=== PATIENT | female | born 1950 | race Caucasian/White ===

== ENCOUNTER 2019-04-09 12:41 | Emergency (ER) | payer MEDICARE, BC ==
--- OUTSIDE RECORDS SUMMARY | 2019-04-09 13:00 | XMS REPORT | Continuity of Care Document ---
:1950 External Reference #:[id number] Author Name Vira Nunez Care Team Providers Name Role Phone Ale Miranda MD Primary Care Physician Unavailable Payers Date Identification Numbers Payment Provider Subscriber Policy Number: [id number] Medicare Yessica Laura PayID: [id number] [address] [place] [address] Effective: 2007 Policy Number: [id number] [facility] Yessica Jj PayID: [id number] [address] [place] [address] Problems Active Problems Provider Date Malignant neoplasm of female breast Ale Miranda M.D. Onset: 08/01/2010 Asthma without status asthmaticus Ale Miranda M.D. Onset: 08/01/2010 Benign essential hypertension Ale Miranda M.D. Onset: 10/12/2012 Impaired fasting glycaemia Ale Miranda M.D. Onset: 10/12/2012 Glaucoma Ale Miranda M.D. 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3 Ale s/p right Jordan Miranda 5 mastectomy Asmanex Twisthaler 60 2 inhalation 6units J20.9 Ale Metered Doses twice daily Jordan Miranda 5 220mcg/Inh Aerosol Potassium Chloride ER 3 po qd 270tabs Ale 10Meq Jordan Miranda 4 Tablets ER Losartan Potassium take 1 tablet by 90tabs Ale 25mg Tablets mouth once daily Jordan Miranda 4 Ventolin HFA 1 to 2 1inhaler J20.9 [facility] 108(90Base) inhalations Jordan Miranda 4 mcg/Act Aerosol every 4 hours as needed Fluticasone Propionate instill 2 sprays 48units Ale into each Jordan Miranda 4 50mcg/Act Suspension nostril once daily Hydrochlorothiazide 1/2 by mouth 45tabs Ale 25mg every day Jordan Miranda 3 Tablets Levothyroxine Sodium 1 by mouth once 90tabs Ale 75mcg daily Tomasz MirandaDRicardo 0 Tablets Lumigan one drop both Unknown 0.01% Solution eyes qhs 0 Betoptic-S 1 drop in left Unknown 0.25% Suspension eye bid 0 Multi Complete daily Unknown Capsules 0 Vit D3 daily Unknown 2000Iu 0 History Medications Azithromycin 2 tabs by mouth 6tabs J45.909 Ale 09/07/2018 - 250mg Tablets on day 1; 1 tab Jordan Miranda 10/27/2018 by mouth every day on days 2-5 Augmentin 1 tablet by 20tabs J01.90 Jama Spring NP 12/10/2017 - 875-125mg Tablets mouth q12 hours 12/20/2017 for 10 days Cheratussin ac take 5-10 118ml R05 Jama Spring NP 12/10/2017 - 100-10mg/5ML milliliters 12/17/2017 Syrup every 4-6 hours as needed for cough. Benzonatate one by mouth 30caps R05 Jama Spring NP 12/10/2017 - 200mg Capsules three times 12/24/2017 daily as needed for cough Azithromycin 2 tabs by mouth 6tabs I10 Ale 08/28/2017 - 250mg Tablets on day 1; 1 tab Jordan Miranda 09/04/2017 by mouth every day on days 2-5 Azithromycin two tabs day 6tabs J20.9 Kaylah Mcfarlane, 10/30/2016 - 250mg Tablets one, one daily N.P. 11/09/2016 till gone Prednisone 4 tablets by 40tabs J20.9 Kaylah Mcfarlane, 10/30/2016 - 10mg Tablets mouth for 4 days N.P. 11/09/2016 3 tablets by mouth for 4 days 2 tablets by mouth for 4 days 1 tablet by mouth for 4 days Benzonatate one by mouth 30caps J20.9 Kaylah Mcfarlane, 10/30/2016 - 200mg Capsules three times N.P. 11/13/2016 daily as needed for cough Asmanex 60 Metered Doses 2 inhalation 360units 466.0 Ale 10/14/2014 - twice daily Ruben M.DRicardo 11/21/2014 220mcg/Inh Aerosol Azithromycin 2 tabs by mouth 6tabs 466.0 Ale 10/14/2014 - 250mg Tablets on day 1; 1 tab Jordan Miranda 03/27/2015 by mouth every day on days 2-5 Nystatin 4 milliliters 473ml 112.0 Kaylah Mcfarlane, 08/30/2014 - 159415Pcit/ML four times a N.P. 09/13/2014 Suspension day, swish and swallow for 14 days Azithromycin two tabs day 6tabs 466.0 Kaylah Sarahfreida, 08/30/2014 - 250mg Tablets one, one daily N.P. 09/09/2014 till gone Robitussin ac 1 - 2 tsp every 120cc 466.0 Kaylah Denys, 08/30/2014 - Solution 4 hours as N.P. 09/13/2014 needed for cough Potassium Chloride CR 3 po qd 270tabs Ale 04/12/2013 - 10Meq Jordan Miranda 07/05/2014 Tablets ER Robitussin ac 1 - 2 tsp very 4 240cc 466.0 Kaylah Denys, 11/23/2012 - hours as needed N.P. 04/12/2013 for cough Prednisone as directed 40tabs 466.0 Kaylah Denys, 11/23/2012 - 5mg Tablets N.P. 12/09/2012 Azithromycin two tabs day 6tabs 466.0 Vamsi Garcia 11/23/2012 - 250mg Tablets one, one daily Jordan James 04/14/2014 till gone Ventolin HFA 1 to 2 1inhaler 466.0 Kaylah Denys, 11/23/2012 - 108(90Base) inhalations N.P. 04/14/2014 mcg/ac Aerosol every 4 hours as needed Zofran 1 tab po q6h prn 20tabs Van Cruz, 03/16/2012 - 4mg Tablets nausea M.D. 10/12/2012 Ray 1-2 tabs po q4-6 60tabs k Anthony, 03/16/2012 - 5-325mg Tablets h prn pain M.D. 10/12/2012 Wheelchair, Folding for use for 1units Ale 03/15/2012 - Misc ankle fracture Jordan Miranda 10/12/2012 Robitussin ac 1 - 2 tsp q 4 120cc 466.0 Ale 02/03/2012 - hours, prn cough Jordan Miranda 03/15/2012 Azithromycin two tabs day 6tabs 466.0 Ale 02/03/2012 - 250mg Tablets one, one daily Jordan Miranda 02/13/2012 till gone Azithromycin two tabs day 6tabs 466.0 Lea Sands 12/03/2011 - 250mg Tablets one, one daily M.DRicardo, [facility] 12/13/2011 till gone Robitussin ac 1 - 2 tsp q 4 120cc 466.0 [facility] 12/03/2011 - Solution hrs prn cough Jordan Miranda 02/03/2012 Asmanex 60 Metered Doses 2 inhalation 360units [facility] 10/10/2011 - twice daily Jordan Miranda 10/14/2014 220mcg/Inh Aerosol Potassium Chloride CR 1 by mouth twice 90tabs [facility] 09/11/2011 - 10Meq daily Jordan Miranda 04/12/2013 Tablets ER Robitussin ac 1 - 2 tsp every 120cc 461.9 [facility] 07/31/2011 - 4 hours as Jordan Miranda 09/11/2011 needed for cough Amoxicillin/Potassium 1 po bid for 10 20tabs 461.9 [facility] 07/31/2011 - Clavulanate days Jordan Miranda 08/10/2011 875-125mg Tablets Zithromax Z-Frandy two po initially 1Pack 461.9 [facility] 06/25/2011 - 250mg Tablets then one po Jordan Miranda 09/11/2011 daily Robitussin ac 1 - 2 tsp every 120cc 461.9 [facility] 06/25/2011 - 4 hours prn Jordan Miranda 09/11/2011 cough Medrol Dosepak as directed 1pak 461.9 Lea Sands, 05/07/2011 - 4mg Tablets M.DRicardo, [facility] 05/13/2011 Azithromycin two tabs day 6tabs 461.9 Lea Sands, 05/07/2011 - 250mg Tablets one, one daily M.DRicardo, [facility] 05/17/2011 till gone Robitussin ac 1 to 2 tsp every 120cc 461.9 Lea Sands, 05/07/2011 - Solution 4 hours as Jordan, [facility] 05/21/2011 needed for cough Zithromax Z-Frandy two po initially 1Pack 461.9 [facility] 03/08/2011 - 250mg Tablets then one po Jordan Miranda 03/18/2011 daily Robitussin ac 1 to 2 tsp every 120cc 461.9 [facility] 03/08/2011 - Solution 4 hours as Jordan Miranda 07/31/2011 needed for cough Mastectomy Bra 2units 272.4 [facility] 02/05/2011 - Jordan Miranda 02/05/2011 Breast Prosthesis 1units 272.4 [facility] 02/05/2011 - Jordan Miranda 02/05/2011 Hydrochlorothiazide Take One-Half 45tabs Lea Sands, 01/02/2011 - 25mg Tablet By Mouth Jordan, FAC 02/05/2011 Tablets A Day Zofran 1 tablet three 30tabs [facility] 08/02/2010 - 8mg Tablets times daily MD Huseyin 02/05/2011 Erythromycin Apply to 373.00 [facility] 08/02/2010 - Ophthalmologic Ointment affected eye qhs Jordan Miranda 02/05/2011 HCTZ 1/2 tablet by 45units [facility] 06/18/2010 - 25mg. mouth once daily Jordan Miranda 04/12/2013 Flovent HFA Inhale 2 Puffs 3units [facility] 06/18/2010 - 220mcg/Act Two Times A Day Jordan Miranda 10/10/2011 Aerosol Nasonex Instill 2 Sprays 3units 401.1 [facility] 06/18/2010 - 50mcg/Act Suspension Into Each Jordan Miranda 04/14/2014 Nostril Once Daily Hydrochlorothiazide 1/2 tablet once 15tabs [facility] 06/01/2010 - 25mg daily Jordan Miranda 08/02/2010 Tablets Lisinopril 1 by mouth once 90tabs [facility] 05/18/2010 - 2.5mg Tablets daily Jordan Miranda 05/09/2014 Anastrozole 1 tablet by Justice, - 1mg Tablets mouth daily MD Huseyin 06/05/2016 Immunizations CPT Code Status Date Vaccine Lot # [id number] Given 03/06/2018 Pneumococcal Conjugate Vaccine 13 Valent For [id number] Intramuscular Use [id number] Given 06/05/2016 Tetanus And Diptheria (Td) For Adult Use [id number] Preservative Free Vital Signs Date Vital Result Comment 03/12/2019 1:29pm Height 63.75 inches 5'3.75" Weight 172.00 lb Heart Rate 84 /min BP Systolic Sitting 137 mmHg BP Diastolic Sitting 83 mmHg O2 % BldC Oximetry 97 % BMI (Body Mass Index) 29.8 kg/m2 09/07/2018 2:35pm Height 63.75 inches 5'3.75" Weight 171.00 lb Heart Rate 81 /min BP Systolic 132 mmHg BP Diastolic 82 mmHg BP Systolic Sitting 145 mmHg BP Diastolic Sitting 87 mmHg O2 % BldC Oximetry 98 % BMI (Body Mass Index) 29.6 kg/m2 03/06/2018 1:15pm Height 63.75 inches 5'3.75" Weight 170.00 lb Heart Rate 73 /min BP Systolic Sitting 156 mmHg BP Diastolic Sitting 78 mmHg O2 % BldC Oximetry 100 % BMI (Body Mass Index) 29.4 kg/m2 12/10/2017 9:14am Weight 169.25 lb Heart Rate 72 /min BP Systolic 126 mmHg BP Diastolic 82 mmHg Body Temperature 97.0 F O2 % BldC Oximetry 96 % 08/28/2017 2:25pm Weight 167.50 lb Heart Rate 94 /min BP Systolic 122 mmHg BP Diastolic 80 mmHg Body Temperature 99.6 F O2 % BldC Oximetry 94 % 06/13/2017 3:58pm Weight 165.50 lb Heart Rate 83 /min BP Systolic 140 mmHg BP Diastolic 64 mmHg Body Temperature 98.1 F O2 % BldC Oximetry 99 % 12/19/2016 8:37am Weight 162.50 lb Heart Rate 75 /min BP Systolic 138 mmHg BP Diastolic 80 mmHg O2 % BldC Oximetry 98 % 10/30/2016 9:06am Height 64 inches 5'4" Weight 164.00 lb Heart Rate 82 /min BP Systolic 122 mmHg BP Diastolic 78 mmHg Body Temperature 99.0 F O2 % BldC Oximetry 97 % BMI (Body Mass Index) 28.1 kg/m2 06/05/2016 11:13am Height 64 inches 5'4" Weight 174.00 lb Heart Rate 70 /min BP Systolic Sitting 126 mmHg BP Diastolic Sitting 82 mmHg Respiratory Rate 15 /min Body Temperature 98.5 F O2 % BldC Oximetry 98 % BMI (Body Mass Index) 29.9 kg/m2 04/18/2015 4:01pm Height 64 inches 5'4" Weight 177.25 lb Heart Rate 75 /min BP Systolic Sitting 141 mmHg BP Diastolic Sitting 78 mmHg BMI (Body Mass Index) 30.4 kg/m2 10/14/2014 1:40pm Height 64 inches 5'4" Weight 171.00 lb Heart Rate 80 /min BP Systolic Sitting 122 mmHg BP Diastolic Sitting 70 mmHg Body Temperature 99.1 F O2 % BldC Oximetry 99 % BMI (Body Mass Index) 29.3 kg/m2 08/30/2014 9:20am Height 64 inches 5'4" Weight 171.25 lb Heart Rate 99 /min BP Systolic Sitting 148 mmHg BP Diastolic Sitting 70 mmHg Body Temperature 98.1 F O2 % BldC Oximetry 96 % BMI (Body Mass Index) 29.4 kg/m2 04/14/2014 1:28pm Height 64 inches 5'4" Weight 172.00 lb Heart Rate 72 /min BP Systolic Sitting 124 mmHg BP Diastolic Sitting 68 mmHg Body Temperature 98.6 F BMI (Body Mass Index) 29.5 kg/m2 02/17/2014 10:54am Height 64 inches 5'4" Heart Rate 71 /min BP Systolic 156 mmHg BP Diastolic 86 mmHg 01/26/2014 9:35am Weight 168.00 lb Heart Rate 80 /min BP Systolic Sitting 130 mmHg BP Diastolic Sitting 82 mmHg 10/14/2013 1:44pm Weight 169.00 lb Heart Rate 78 /min BP Systolic Sitting 128 mmHg BP Diastolic Sitting 84 mmHg 05/24/2013 10:31am Height 64.5 inches 5'4.50" Weight 173.50 lb Heart Rate 72 /min BP Systolic Sitting 130 mmHg BP Diastolic Sitting 80 mmHg BMI (Body Mass Index) 29.3 kg/m2 04/12/2013 3:22pm Weight 175.00 lb Heart Rate 76 /min BP Systolic Sitting 136 mmHg BP Diastolic Sitting 82 mmHg 11/23/2012 10:37am Height 64 inches 5'4" Weight 171.00 lb Heart Rate 106 /min BP Systolic Sitting 128 mmHg BP Diastolic Sitting 82 mmHg Body Temperature 100.0 F BMI (Body Mass Index) 29.3 kg/m2 10/12/2012 3:27pm Height 64 inches 5'4" Weight 168.00 lb Heart Rate 86 /min BP Systolic Sitting 132 mmHg BP Diastolic Sitting 80 mmHg BMI (Body Mass Index) 28.8 kg/m2 04/07/2012 4:04pm Height 64 inches 5'4" Heart Rate 84 /min BP Systolic Sitting 128 mmHg BP Diastolic Sitting 72 mmHg 03/16/2012 2:37pm Height 64 inches 5'4" Weight 169.00 lb Heart Rate 93 /min BP Systolic 145 mmHg BP Diastolic 84 mmHg BMI (Body Mass Index) 29.0 kg/m2 02/03/2012 10:25am Height 63.5 inches 5'3.50" Weight 174.00 lb Heart Rate 84 /min BP Systolic Sitting 142 mmHg BP Diastolic Sitting 76 mmHg Body Temperature 98.9 F BMI (Body Mass Index) 30.3 kg/m2 12/03/2011 3:18pm Height 63.5 inches 5'3.50" Weight 176.00 lb BP Systolic Sitting 134 mmHg l BP Diastolic Sitting 82 mmHg l Body Temperature 98.8 F BMI (Body Mass Index) 30.7 kg/m2 10/10/2011 2:01pm Height 63.5 inches 5'3.50" Weight 169.00 lb Heart Rate 68 /min BP Systolic Sitting 142 mmHg BP Diastolic Sitting 74 mmHg BMI (Body Mass Index) 29.5 kg/m2 07/31/2011 3:55pm Height 63.5 inches 5'3.50" Weight 174.00 lb Heart Rate 84 /min BP Systolic Sitting 132 mmHg BP Diastolic Sitting 64 mmHg Body Temperature 98.9 F BMI (Body Mass Index) 30.3 kg/m2 06/25/2011 2:08pm Height 63.5 inches 5'3.50" Weight 175.00 lb Heart Rate 74 /min BP Systolic Sitting 130 mmHg BP Diastolic Sitting 82 mmHg Body Temperature 99.2 F BMI (Body Mass Index) 30.5 kg/m2 05/07/2011 11:03am Height 63.5 inches 5'3.50" Weight 176.00 lb Heart Rate 66 /min BP Systolic Sitting 132 mmHg BP Diastolic Sitting 84 mmHg Body Temperature 98.9 F BMI (Body Mass Index) 30.7 kg/m2 03/08/2011 3:46pm Height 63.5 inches 5'3.50" Weight 178.00 lb Heart Rate 76 /min BP Systolic Sitting 124 mmHg BP Diastolic Sitting 70 mmHg Body Temperature 98.4 F BMI (Body Mass Index) 31.0 kg/m2 02/05/2011 11:12am Weight 173.00 lb Heart Rate 78 /min BP Systolic 140 mmHg BP Diastolic 80 mmHg 08/02/2010 2:54pm Height 64.5 inches 5'4.50" Weight 166.25 lb Heart Rate 76 /min BP Systolic 122 mmHg BP Diastolic 74 mmHg Body Temperature 98.5 F BMI (Body Mass Index) 28.1 kg/m2 Results Test Date Facility Test Result H/L Range Note Lipid Profile 02/19/2019 [facility] Triglycerides 161 mg/dL 1 (Trig/Chol/HDL) DRIVE [place], [place] [id number] [phone] Cholesterol 187 mg/dL 2 HDL Cholesterol 40.6 mg/dL 3 LDL Cholesterol 114 mg/dL 4 Laboratory test 02/19/2019 [facility] TSH (Thyroid 1.77 mcIU/mL N 0.34-5.[address] Stim Horm) [place] [address] [phone] Hemoglobin A1c (Glyco HGB) 6.0 % High 4.0-5.6 5 Laboratory test 09/14/2018 [facility] Surgical SEE RESULT [address] [place] [address] [phone] CBC Auto Diff 06/26/2018 [facility] White Blood 8.4 10^3/uL N 3.5-10 DRIVE Count .8 [place], [place] [id number] [phone] Red Blood Count 4.41 10^6/uL N 4.00-5.40 Hemoglobin 13.1 g/dL N 12.0-16.0 Hematocrit 39 % N 35-47 Mean Corpuscular Volume 89 fL N 80-97 Mean Corpuscular Hemoglobin 30 pg N 27-31 Mean Corpuscular HGB Conc 33 g/dL N 31-36 Red Cell Distribution Width 13 % N 10.5-15 Platelet Count 262 10^3/uL N 150-450 Mean Platelet Volume 8.7 um3 N 7.4-10.4 Abs Neutrophils 5.5 10^3/uL N 1.5-7.7 Abs Lymphocytes 2.1 10^3/uL N 1.0-4.8 Abs Monocytes 0.5 10^3/uL N 0-0.8 Abs Eosinophils 0.3 10^3/uL N 0-0.6 Abs Basophils 0.1 10^3/uL N 0-0.2 Abs Nucleated RBC 0 10^3/uL Granulocyte % 65.0 % N 38-83 Lymphocyte % 24.4 % Low 25-47 Monocyte % 6.3 % N 0-7 Eosinophil % 3.6 % N 0-6 Basophil % 0.7 % N 0-2 Nucleated Red Blood Cells % 0 Comp Metabolic Panel 06/26/2018 [facility] Sodium 141 mmol/L N 135-[address] [place] [address] [phone] Potassium 3.5 mmol/L N 3.5-5.0 Chloride 105 mmol/L N 101-111 Co2 Carbon Dioxide 29 mmol/L N 22-32 Anion Gap 7 mmol/L N 2-11 Calcium 9.0 mg/dL N 8.6-10.3 Albumin 4.1 g/dL N 3.2-5.2 Total Bilirubin 0.60 mg/dL N 0.2-1.0 Glucose 110 mg/dL High 70-100 Blood Urea Nitrogen 18 mg/dL N 6-24 Creatinine 0.58 mg/dL N 0.51-0.95 BUN/Creatinine Ratio 31.0 High 8-20 Total Protein 6.5 g/dL N 6.4-8.9 Globulin 2.4 g/dL N 2-4 Albumin/Globulin Ratio 1.7 N 1-3 Alkaline Phosphatase 84 U/L N 34-104 Alt 17 U/L N 7-52 Ast 16 U/L N 13-39 Egfr Non- 104.0 >60 Egfr 125.9 >60 7 Laboratory test 06/26/2018 [facility] Breast Carcinoma 22.7 U/ mL <=38.0 8 finding 101 Ag(Ca27.29) [place] [address] [phone] Lipid Profile 03/31/2018 [facility] Triglycerides 158 mg/dL 9 (Trig/Chol/HDL) [address] [place] [address] [phone] Cholesterol 194 mg/dL 10 HDL Cholesterol 37.3 mg/dL 11 LDL Cholesterol 125 mg/dL 12 CBC No Diff 02/17/2018 [facility] White Blood 7.4 10^3/uL N 3.5-10.[address] [place] [address] [phone] Red Blood Count 4.38 10^6/uL N 4.0-5.4 Hemoglobin 13.0 g/dL N 12.0-16.0 Hematocrit 39 % N 35-47 Mean Corpuscular Volume 89 fL N 80-97 Mean Corpuscular Hemoglobin 30 pg N 27-31 Mean Corpuscular HGB Conc 34 g/dL N 31-36 Red Cell Distribution Width 13 % N 10.5-15 Platelet Count 249 10^3/uL N 150-450 Mean Platelet Volume 8.8 um3 N 7.4-10.4 Laboratory test 02/17/2018 [facility] Hemoglobin A1c 5.7 % High 4.0-5.6 13 finding (Glyco HGB) [place] [address] [phone] Basic Metabolic 02/17/2018 [facility] Sodium 141 N 139-145 Panel mmol/[place] [address] [phone] Potassium 3.6 mmol/L N 3.5-5.0 Chloride 103 mmol/L N 101-111 Co2 Carbon Dioxide 30 mmol/L N 22-32 Anion Gap 8 mmol/L N 2-11 Glucose 108 mg/dL High 70-100 Blood Urea Nitrogen 16 mg/dL N 6-24 Creatinine 0.64 mg/dL N 0.51-0.95 BUN/Creatinine Ratio 25.0 High 8-20 Calcium 8.9 mg/dL N 8.6-10.3 Egfr Non- 92.8 >60 Egfr 119.4 >60 14 Laboratory 02/17/2018 [facility] TSH (Thyroid 2.05 N 0.34- 5.60 test finding Stim Horm) mcIU/[place] [address] [phone] Laboratory 11/19/2016 [facility] Hemoglobin A1c 5.6 % N Less than 15 test finding (Glyco HGB) 6.0 [place] [address] [phone] Lipid Profile 11/19/2016 [facility] Triglycerides 161 mg/dL N 16 (Trig/Chol/HDL ) [place] [address] [phone] Cholesterol 171 mg/dL N 17 HDL Cholesterol 35.8 mg/dL N 18 LDL Cholesterol 103 mg/dL N 19 Laboratory 11/19/2016 [facility] TSH (Thyroid 1.44 N 0.34- 5.[address] Stim Horm) mcIU/[place] [address] [phone] Laboratory 06/06/2016 [facility] Hemoglobin A1c 5.9 % N Less than 20 test finding [address] (Glyco HGB) 6.[address] [place] [address] [phone] Lipid Profile 11/06/2015 [facility] Triglycerides 162 mg/dL N 21 (Trig/Chol/HDL [address] ) [place] [address] [phone] Cholesterol 185 mg/dL N 22 HDL Cholesterol 37.7 mg/dL N 23 LDL Cholesterol 115 mg/dL N 24 Laboratory test 11/06/2015 [facility] Hemoglobin A1c 5.6 % N Less than [address] (Glyco HGB) 6.[address] [place] [address] [phone] TSH (Thyroid Stim Horm) 2.21 ?IU/mL N 0.34-5.60 CBC Auto Diff 05/19/2015 [facility] White Blood 8.0 10^3/uL N 4.8-10.[address] [place] [address] [phone] Red Blood Count 4.64 10^6/uL N 4.0-5.4 Hemoglobin 13.7 g/dL N 12.0-16.0 Hematocrit 42 % N 35-47 Mean Corpuscular Volume 90 fL N 80-97 Mean Corpuscular Hemoglobin 29 pg N 27-31 Mean Corpuscular HGB Conc 33 g/dL N 31-36 Red Cell Distribution Width 14 % N 10.5-15 Platelet Count 272 10^3/uL N 150-450 Mean Platelet Volume 8 um3 N 7.4-10.4 Abs Neutrophils 5.0 10^3/uL N 1.5-7.7 Abs Lymphocytes 2.1 10^3/uL N 1.0-4.8 Abs Monocytes 0.5 10^3/uL N 0-0.8 Abs Eosinophils 0.3 10^3/uL N 0-0.6 Abs Basophils 0.1 10^3/uL N 0-0.2 Abs Nucleated RBC 0.01 10^3/uL N Granulocyte % 62.7 % N 38-83 Lymphocyte % 26.2 % N 25-47 Monocyte % 5.7 % N 1-9 Eosinophil % 4.2 % N 0-6 Basophil % 1.2 % N 0-2 Nucleated Red Blood Cells % 0.1 N Comp Metabolic Panel 05/19/2015 [facility] Sodium 140 mmol/L N 133-[address] [place] [address] [phone] Potassium 3.8 mmol/L N 3.5-5.0 Chloride 104 mmol/L N 101-111 Co2 Carbon Dioxide 28 mmol/L N 22-32 Anion Gap 8 mmol/L N 2-11 Glucose 109 mg/dL High 70-100 Blood Urea Nitrogen 15 mg/dL N 6-24 Creatinine 0.57 mg/dL N 0.51-0.95 BUN/Creatinine Ratio 26.3 High 8-20 Calcium 9.2 mg/dL N 8.6-10.3 Total Protein 6.9 g/dL N 6.4-8.9 Albumin 4.4 g/dL N 3.2-5.2 Globulin 2.5 g/dL N 2-4 Albumin/Globulin Ratio 1.8 N 1-3 Total Bilirubin 0.60 mg/dL N 0.2-1.0 Alkaline Phosphatase 87 U/L N 34-104 Alt 33 U/L N 7-52 Ast 25 U/L N 13-39 Egfr Non- 107.1 N >60 Egfr 137.8 N >60 26 Laboratory 05/19/2015 [facility] CA 27-29 19.50 N 3.5-38.6 27 test finding [address] U/[place] [address] [phone] Laboratory 03/02/2015 [facility] Hemoglobin A1c 6.1 % High Less than 28 test finding [address] 6[address] [place] [address] [phone] CBC Auto Diff 12/13/2014 [facility] White Blood 8.7 N 4.8- 10.[address] Count 10^3/[place] [address] [phone] Red Blood Count 4.57 10^6/uL N 4.0-5.4 Hemoglobin 13.7 g/dL N 12.0-16.0 Hematocrit 41 % N 35-47 Mean Corpuscular Volume 89 fL N 80-97 Mean Corpuscular Hemoglobin 30 pg N 27-31 Mean Corpuscular HGB Conc 34 g/dL N 31-36 Red Cell Distribution Width 13 % N 10.5-15 Platelet Count 267 10^3/uL N 150-450 Mean Platelet Volume 8 um3 N 7.4-10.4 Abs Neutrophils 5.6 10^3/uL N 1.5-7.7 Abs Lymphocytes 2.2 10^3/uL N 1.0-4.8 Abs Monocytes 0.5 10^3/uL N 0-0.8 Abs Eosinophils 0.3 10^3/uL N 0-0.6 Abs Basophils 0.1 10^3/uL N 0-0.2 Abs Nucleated RBC 0 10^3/uL N Granulocyte % 64.0 % N 38-83 Lymphocyte % 25.2 % N 25-47 Monocyte % 5.8 % N 1-9 Eosinophil % 3.8 % N 0-6 Basophil % 1.2 % N 0-2 Nucleated Red Blood Cells % 0 N Comp Metabolic Panel 12/13/2014 [facility] Sodium 139 mmol/L N 133-[address] [place] [address] [phone] Potassium 4.1 mmol/L N 3.5-5.0 Chloride 103 mmol/L N 101-111 Co2 Carbon Dioxide 29 mmol/L N 22-32 Anion Gap 7 mmol/L N 2-11 Glucose 101 mg/dL High 70-100 Blood Urea Nitrogen 18 mg/dL N 6-24 Creatinine 0.63 mg/dL N 0.51-0.95 BUN/Creatinine Ratio 28.6 High 8-20 Calcium 9.5 mg/dL N 8.6-10.3 Total Protein 7.1 g/dL N 6.4-8.9 Albumin 4.5 g/dL N 3.2-5.2 Globulin 2.6 g/dL N 2-4 Albumin/Globulin Ratio 1.7 N 1-3 Total Bilirubin 0.60 mg/dL N 0.2-1.0 Alkaline Phosphatase 80 U/L N 34-104 Alt 25 U/L N 7-52 Ast 23 U/L N 13-39 Egfr Non- 95.8 N >60 Egfr 123.1 N >60 29 Laboratory test 12/13/2014 [facility] CA 27-29 20.69 U/mL N 3.5-38.6 [address] [place] [address] [phone] Lipid Profile 09/19/2014 [facility] Triglycerides 197 mg/dL N 31 (Trig/Chol/HDL) [address] [place] [address] [phone] Cholesterol 179 mg/dL N 32 HDL Cholesterol 35.4 mg/dL N 33 LDL Cholesterol 104 mg/dL N 34 Laboratory test 09/19/2014 [facility] Hemoglobin A1c 6.0 % N Less than [address] [place] [address] [phone] TSH (Thyroid Stimulating Horm) 2.34 IU/mL N 0.34-5.60 Laboratory test 03/03/2014 [facility] Hemoglobin A1c 5.9 % N Less than [address] [place] [address] [phone] Hepatitis C Antibody Nonreactive N Nonreactive Vitamin D, 25 08/06/2013 [facility] 25-Hydroxy Vitamin <4.0 ng/ mL Hydroxy [address] [place] [address] [phone] 25-Hydroxy Vitamin D3 44 ng/mL 25-Hydroxy Vitamin D Total 44 ng/mL 37 Laboratory test 08/06/2013 [facility] TSH (Thyroid 1.34 0.34- 5.60 finding Stimulating miu/[place] [address] Horm) [phone] Hemoglobin A1c 6.0 % Less than 6.0 38 Lipid Profile 08/06/2013 [facility] Triglycerides 182 mg/dL 40-200 (Trig/Chol/HDL) [address] [place] [address] [phone] Cholesterol 195 mg/dL Less than 200 HDL Cholesterol 35 mg/dL Low 40-60 39 Cholesterol/HDL Ratio 5.6 Average High 1-4.44 LDL Cholesterol 123.6 High Less Than 100 40 Comp Metabolic Panel 08/06/2013 [facility] Sodium 140 mmol/L 133-145 [address] [place] [address] [phone] Potassium 3.9 mmol/L 3.5-5.0 Chloride 105 mmol/L 101-111 Co2 Carbon Dioxide 29.0 mmol/L 22-32 Anion Gap 6.0 mmol/L 2-11 Glucose 106 mg/dL High 70-100 Blood Urea Nitrogen 13 mg/dL 6-24 Creatinine 0.60 mg/dL 0.50-1.40 BUN/Creatinine Ratio 21.7 High 8-20 Calcium 9.4 mg/dL 8.1-9.9 Total Protein 6.8 g/dL 6.2-8.1 Albumin 3.9 g/dL 3.2-5.2 Globulin 2.9 g/dL 2-4 Albumin/Globulin Ratio 1.3 1-3 Total Bilirubin 0.6 mg/dL 0.4-1.5 Alkaline Phosphatase 87 U/L 30-110 Alt 25 U/L 14-54 Ast 25 U/L 12-42 Egfr Non- 101.6 >60 Egfr 130.7 >60 41 Surgical Pathology 04/23/2013 [facility] S RUN DATE: [address] <[place] [address] NOTE> [phone] Comp Metabolic 10/14/2012 [facility] Sodium 139 mmol/L 133- [address] [place] [address] [phone] Potassium 3.6 mmol/L 3.5-5.0 Chloride 104 mmol/L 101-111 Co2 Carbon Dioxide 27.0 mmol/L 22-32 Anion Gap 8.0 mmol/L 2-11 Glucose 78 mg/dL 70-100 Blood Urea Nitrogen 19 mg/dL 6-24 Creatinine 0.60 mg/dL 0.50-1.40 BUN/Creatinine Ratio 31.7 High 8-20 Calcium 9.2 mg/dL 8.1-9.9 Total Protein 7.1 g/dL 6.2-8.1 Albumin 4.2 g/dL 3.2-5.2 Globulin 2.9 g/dL 2-4 Albumin/Globulin Ratio 1.4 1-3 Total Bilirubin 0.7 mg/dL 0.4-1.5 Alkaline Phosphatase 97 U/L 30-110 Alt 22 U/L 14-54 Ast 20 U/L 12-42 Egfr Non- 102.0 >60 Egfr 131.1 >60 43 Vitamin D, 25 10/14/2012 [facility] 25-Hydroxy Vitamin <4.0 ng/ mL Hydroxy [address] [place] [address] [phone] 25-Hydroxy Vitamin D3 27 ng/mL 25-Hydroxy Vitamin D Total 27 ng/mL 44 Lipid Profile 09/03/2012 [facility] Triglycerides 214 mg/dL High 40-200 (Trig/Chol/HDL) [address] [place] [address] [phone] Cholesterol 212 mg/dL High Less than 200 45 HDL Cholesterol 39 mg/dL Low 40-60 46 Cholesterol/HDL Ratio 5.4 AVERAGE High 1-4.44 LDL Cholesterol 130.2 mg/dL High Less Than 100 47 Laboratory test 09/03/2012 [facility] Hemoglobin A1c 6.0 % Less than [address]0 [place] [id number] [phone] TSH (Thyroid Stimulating Horm) 1.25 MIU/ML 0.34-5.60 CBC Auto Diff 09/03/2012 [facility] White Blood 8.3 10^3/uL 4.8-10.[address] [place] [address] [phone] Red Blood Count 4.64 10^6/uL 4.0-5.4 Hemoglobin 13.5 g/dL 12.0-16.0 Hematocrit 42 % 35-47 Mean Corpuscular Volume 90 fL 80-97 Mean Corpuscular Hemoglobin 29 pg 27-31 Mean Corpuscular HGB Conc 33 g/dL 31-36 Red Cell Distribution Width 13 % 10.5-15 Platelet Count 257 10^3/uL 150-450 Mean Platelet Volume 9 um3 7.4-10.4 Abs Neutrophils 5.6 10^3/uL 1.5-7.7 Abs Lymphocytes 1.9 10^3/uL 1.0-4.8 Abs Monocytes 0.4 10^3/uL 0-0.8 Abs Eosinophils 0.2 10^3/uL 0-0.6 Abs Basophils 0.1 10^3/uL 0-0.2 Abs Nucleated RBC 0.01 10^3/uL Granulocyte % 68.1 % 38-83 Lymphocyte % 23.0 % Low 25-47 Monocyte % 5.2 % 1-9 Eosinophil % 2.8 % 0-6 Basophil % 0.9 % 0-2 Nucleated Red Blood Cells % 0.2 Laboratory test 09/03/2012 [facility] CA 27-29 26.06 U/ML 3.5 -38.6 [address] [place] [address] [phone] CBC Auto Diff 06/10/2012 [facility] White Blood 8.5 CUMM 4.8- 10.[address] [place] [address] [phone] Red Cell Count 4.22 CUMM 4.2-5.4 Hemoglobin 13.2 g/dL 12.0-16.0 Hematocrit 38 % 35-47 Mean Corpuscular Volume 89 um3 79-97 Mean Corpuscular Hemoglob 31 pg 27-31 Mean Corpuscular HGB Cone 35 g/dL 32-36 Redcell Distribution WDTH 13 % 10.5-15 Platelet Count 261 CUMM 150-450 Mean Platelet Volume 7.8 um3 7.4-10.4 Gran % 64.7 % 38-83 Lymph % 25.4 % 20-45 Mononuclear % 5.9 % 1-9 Eosinophil % 3.1 % 0-6 Basophil % 0.9 % 0-2 Abs Lymphs 2.2 1.0-4.8 Abs Mononuclear 0.5 0-0.8 Absolute Neutrophil Count 5.4 1.5-7.7 Abs Eosinophils 0.3 0-0.6 Abs Basophils 0.1 0-0.2 Comp Metabolic Panel 06/10/2012 [facility] Sodium 137 mmol/L 135-145 [address] [place] [address] [phone] Potassium 3.3 mmol/L Low 3.5-5.0 Chloride 102 mmol/L 101-111 Co2 (Carbon Dioxide) 30.0 mmol/L 22-32 Anion Gap 5.0 mmol/L 2-11 50 Glucose 113 mg/dL High 70-100 BUN 16 mg/dL 6-24 Creatinine 0.6 mg/dL 0.50-1.40 One Over Creatinine 1.66 BUN/Creatinine Ratio 26.7 High 8-20 Calcium 9.5 mg/dL 8.1-9.9 Total Protein 6.6 GM/DL 6.2-8.1 Albumin 4.0 GM/DL 3.2-5.2 Globulin 2.6 GM/DL 2-4 Albumin/Globulin Ratio 1.5 1-3 Bilirubin Total 0.6 mg/dL 0.4-1.5 51 Alkaline Phosphatase 105 U/L 30-110 Alt (SGPT) 18 U/L 14-54 Ast (Sgot) 20 U/L 12-42 eGFR Non- 102.0 > 60 eGFR 131.1 > 60 52 Laboratory test 06/10/2012 [facility] CA 27-29 18.12 U/mL 3.5 -38.6 [address] [place] [address] [phone] Basic Metabolic 10/16/2011 [facility] Sodium 146 mmol/L High 135-[address] [place] [address] [phone] Potassium 3.7 mmol/L 3.5-5.0 Chloride 105 mmol/L 101-111 Co2 (Carbon Dioxide) 29.0 mmol/L 22-32 Anion Gap 12.0 mmol/L High 2-11 54 Glucose 110 mg/dL High 70-100 BUN 17 mg/dL 6-24 Creatinine 0.7 mg/dL 0.50-1.40 One Over Creatinine 1.42 BUN/Creatinine Ratio 24.3 High 8-20 Calcium 9.7 mg/dL 8.1-9.9 eGFR Non- 85.6 > 60 eGFR 110.1 > 60 55 Laboratory test 10/16/2011 [facility] Hemoglobin A1c 6.0 % Less Than [address] [place] [address] [phone] CBC Auto Diff 09/11/2011 [facility] White Blood 8.1 CUMM 4.8- 10.[address] [place] [address] [phone] Red Cell Count 4.36 CUMM 4.2-5.4 Hemoglobin 13.5 g/dL 12.0-16.0 Hematocrit 39 % 35-47 Mean Corpuscular Volume 88 um3 79-97 Mean Corpuscular Hemoglob 31 pg 27-31 Mean Corpuscular HGB Cone 35 g/dL 32-36 Redcell Distribution WDTH 13 % 10.5-15 Platelet Count 276 CUMM 150-450 Mean Platelet Volume 8.2 um3 7.4-10.4 Gran % 67.9 % 38-83 Lymph % 21.7 % 20-45 Mononuclear % 5.6 % 1-9 Eosinophil % 3.6 % 0-6 Basophil % 1.2 % 0-2 Abs Lymphs 1.8 1.0-4.8 Abs Mononuclear 0.5 0-0.8 Absolute Neutrophil Count 5.4 1.5-7.7 Abs Eosinophils 0.3 0-0.6 Abs Basophils 0.1 0-0.2 Laboratory test 09/11/2011 [facility] CA 27-29 14.17 U/ml 3.5 -38.6 [address] [place] [address] [phone] Comp Metabolic 09/11/2011 [facility] Sodium 139 mmol/L 135- [address] [place] [address] [phone] Potassium 3.2 mmol/L Low 3.5-5.0 Chloride 103 mmol/L 101-111 Co2 (Carbon Dioxide) 30.0 mmol/L 22-32 Anion Gap 6.0 mmol/L 2-11 58 Glucose 123 mg/dL High 70-100 BUN 15 mg/dL 6-24 Creatinine 0.6 mg/dL 0.50-1.40 One Over Creatinine 1.66 BUN/Creatinine Ratio 25.0 High 8-20 Calcium 9.3 mg/dL 8.1-9.9 Total Protein 7.0 GM/DL 6.2-8.1 Albumin 4.4 GM/DL 3.6-5.4 Globulin 2.6 GM/DL 2-4 Albumin/Globulin Ratio 1.7 1-3 Bilirubin Total 0.6 mg/dL 0.4-1.5 59 Alkaline Phosphatase 97 U/L 30-110 Alt (SGPT) 28 U/L 14-54 Ast (Sgot) 28 U/L 12-42 eGFR Non- 102.3 > 60 eGFR 131.6 > 60 60 Laboratory test 08/01/2011 [facility] Hemoglobin A1c 6.0 % Less Than [address] [place] [address] [phone] Lipid Profile 08/01/2011 [facility] Triglyceride 183 mg/dL 40 -200 (Trig/Chol/HDL) [address] [place] [address] [phone] Cholesterol 211 mg/dL High Less Than 200 62 High Density Lipoprotein 35 mg/dL Low 40-60 63 Cholesterol/HDL Ratio 6.03 AVERAGE High 1-4.44 Low Density Lipoprotein 139 mg/dL High Less Than 100 64 Comp Metabolic Panel 08/01/2011 [facility] Sodium 139 mmol/L 135-145 [address] [place] [address] [phone] Potassium 3.6 mmol/L 3.5-5.0 Chloride 103 mmol/L 101-111 Co2 (Carbon Dioxide) 27.0 mmol/L 22-32 Anion Gap 9.0 mmol/L 2-11 65 Glucose 115 mg/dL High 70-100 BUN 13 mg/dL 6-24 Creatinine 0.5 mg/dL Low 0.50-1.40 One Over Creatinine 2.00 BUN/Creatinine Ratio 26.0 High 8-20 Calcium 9.5 mg/dL 8.1-9.9 Total Protein 6.6 GM/DL 6.2-8.1 Albumin 4.5 GM/DL 3.6-5.4 Globulin 2.1 GM/DL 2-4 Albumin/Globulin Ratio 2.1 1-3 Bilirubin Total 0.7 mg/dL 0.4-1.5 66 Alkaline Phosphatase 95 U/L 30-110 Alt (SGPT) 30 U/L 14-54 Ast (Sgot) 27 U/L 12-42 eGFR Non- 126.3 > 60 eGFR 162.4 > 60 67 Laboratory test 06/20/2011 [facility] TSH 1.19 MIU/ML 0.34- 5.60 finding [address] [place] [address] [phone] Laboratory test 06/20/2011 [facility] CA 27-29 20.80 U/ml 3.5 -38.6 [address] [place] [address] [phone] Comp Metabolic 06/20/2011 [facility] Sodium 142 mmol/L 135- 145 Panel [address] [place] [address] [phone] Potassium 3.7 mmol/L 3.5-5.0 Chloride 103 mmol/L 101-111 Co2 (Carbon Dioxide) 28.0 mmol/L 22-32 Anion Gap 11.0 mmol/L 2-11 69 Glucose 153 mg/dL High 70-100 BUN 10 mg/dL 6-24 Creatinine 0.7 mg/dL 0.50-1.40 One Over Creatinine 1.42 BUN/Creatinine Ratio 14.3 8-20 Calcium 9.7 mg/dL 8.1-9.9 Total Protein 6.9 GM/DL 6.2-8.1 Albumin 4.2 GM/DL 3.6-5.4 Globulin 2.7 GM/DL 2-4 Albumin/Globulin Ratio 1.6 1-3 Bilirubin Total 0.7 mg/dL 0.4-1.5 70 Alkaline Phosphatase 89 U/L 30-110 Alt (SGPT) 38 U/L 14-54 Ast (Sgot) 36 U/L 12-42 eGFR Non- 85.6 > 60 eGFR 110.1 > 60 71 CBC Auto Diff 06/20/2011 [facility] White Blood 5.8 CUMM 4.8- 10.[address] [place] [address] [phone] Red Cell Count 4.35 CUMM 4.2-5.4 Hemoglobin 13.0 g/dL 12.0-16.0 Hematocrit 38 % 35-47 Mean Corpuscular Volume 87 um3 79-97 Mean Corpuscular Hemoglob 30 pg 27-31 Mean Corpuscular HGB Cone 34 g/dL 32-36 Redcell Distribution WDTH 13 % 10.5-15 Platelet Count 235 CUMM 150-450 Mean Platelet Volume 8.4 um3 7.4-10.4 Gran % 80.0 % 38-83 Lymph % 15.4 % Low 20-45 Mononuclear % 3.8 % 1-9 Eosinophil % 0.7 % 0-6 Basophil % 0.1 % 0-2 Abs Lymphs 0.9 Low 1.0-4.8 Abs Mononuclear 0.2 0-0.8 Absolute Neutrophil Count 4.7 1.5-7.7 Abs Eosinophils 0 0-0.6 Abs Basophils 0 0-0.2 Laboratory test 05/02/2010 [facility] CA 27-29 18.82 U/ml 3.5 -38.6 [address] [place] [address] [phone] Comp Metabolic 05/02/2010 [facility] Sodium 141 mmol/L 135- [address] [place] [address] [phone] Potassium 4.1 mmol/L 3.5-5.0 Chloride 105 mmol/L 101-111 Co2 (Carbon Dioxide) 30.0 mmol/L 22-32 Anion Gap 6.0 mmol/L 2-11 73 Glucose 81 mg/dL 70-100 74 BUN 14 mg/dL 6-24 Creatinine 0.60 mg/dL 0.50-1.40 One Over Creatinine 1.60 BUN/Creatinine Ratio 23.3 High 8-20 Calcium 9.6 mg/dL 8.1-9.9 75 Total Protein 7.1 GM/DL 6.2-8.1 Albumin 4.4 GM/DL 3.6-5.4 Globulin 2.7 GM/DL 2-4 Albumin/Globulin Ratio 1.6 1-3 Bilirubin Total 0.9 mg/dL 0.4-1.5 76 Alkaline Phosphatase 85 U/L 30-110 Alt (SGPT) 27 U/L 14-54 Ast (Sgot) 25 U/L 12-42 eGFR Non- 109.1 > 60 eGFR 132.0 > 60 77 CBC With Manual 05/02/2010 [facility] White Blood 9.1 CUMM 4.8-10.8 [address] [place] [address] [phone] Red Cell Count 4.59 CUMM 4.2-5.4 Hemoglobin 13.2 g/dL 12.0-16.0 Hematocrit 41 % 35-47 Mean Corpuscular Volume 88 um3 79-97 Mean Corpuscular Hemoglob 29 pg 27-31 Mean Corpuscular HGB Cone 33 g/dL 32-36 Redcell Distribution WDTH 13 % 10.5-15 Platelet Count 285 CUMM 150-450 Mean Platelet Volume 7.7 um3 7.4-10.4 Polysegmented Neutrophil 49 % 38-83 Band Neutrophil 1 % 0-8 Lymphocyte 30 % 25-47 Monocyte 5 % 0-13 Eosinophil 2 % 0-6 Atypical Lymph 13 % High 0-6 Absolute Neutrophil Count 4.5 Anisocytosis 1+ Polychromasia SLIGHT Cytology 04/12/2010 [facility] Cytology <SEE NOTE> [address] [place] [address] [phone] Desirable: <150 Borderline High: 150-199 High: 200-499 Very High: >500 2 Desirable: <200 Borderline High: 200-239 High: >239 3 Low: <40 Desirable: 40-60 High: >60 4 Desirable: <100 Near Optimal: 100-129 Borderline High: 130-159 High: 160-189 Very High: >189 5 Therapeutic target for the treatment of diabetes mellitus patients is <7% HBA1C, and in selective patients <6.0%. Please refer to [employer] diabetic care guidelines for further information. 6 SEE RESULT BELOW Name: RADHA JJYESSICA A : [address]: Vladimir Douglas MD Acct: [id number] Unit: [id number] AGE: 67 Location: ENDO Re09/14/18 SEX: F Status: DEP REF SPEC: [id number] BASILIO: 09/14/18-1114 [facility] DR: Vladimir Douglas MD REQ: [id number] RECD: 09/14/18 STATUS: ANNIKA PRADHAN DR: Ale Miranda MD _ ORDERED: LEVEL 4/2 FINAL DIAGNOSIS 1. Colon, 35 cm, biopsy: -- Tubular adenoma. -- No high grade dysplasia or malignancy. 2. Colon, 15 cm, biopsy: -- Inflammatory (retention) polyp. -- No dysplasia identified. CLINICAL HISTORY Screening/Surveillance for malignancy in asymptomatic patient POST-OPERATIVE DIAGNOSIS Colonoscopy: to terminal ileum; (2) polyps at 35 cm - biopsy; at 15 cm - snare cautery GROSS DESCRIPTION 1. The specimen is received in formalin labeled, Biopsy Colon Polyps at 35 cm, and consists of three sun-pink irregular soft tissue fragments ranging from 0.2 x 0.2 x 0.1 cm to 1.0 by up to 0.3 x 0.1 cm which are submitted entirely in one cassette. 2. The specimen is received in formalin labeled, Colon Polyp at 15 cm, and consists of a 1.0 x 0.7 x 0.7 cm sun-pink lobulated polypoid soft tissue fragment which is inked, bisected and submitted entirely in one cassette. Signed by and Reported on: Sekou Chopra MD [address] END OF REPORT DEPARTMENT OF PATHOLOGY, [address] [place] [address] Sekou Chopra M.D. Director [facility] # [id number] 7 Because ethnic data is not always readily available, this report includes an eGFR for both -Americans and non- Americans. The National Kidney Disease Education Program (NKDEP) does not endorse the use of the MDRD equation for patients that are not between the ages of 18 and 70, are , have extremes of body size, muscle mass, or nutritional status, or are non- or non-. According to the National Kidney Foundation, irrespective of diagnosis, the stage of the disease is based on the level of kidney function: Stage Description GFR(mL/min/1.73 m(2)) 1 Kidney damage with normal or decreased GFR 90 2 Kidney damage with mild decrease in GFR 60-89 3 Moderate decrease in GFR 30-59 4 Severe decrease in GFR 15-29 5 Kidney failure <15 (or dialysis) 8 ADDITIONAL INFORMATION The testing method is a chemiluminometric immunoassay manufactured by [employer] and performed on the [employer]. Values obtained with different assay methods or kits may be different and cannot be used interchangeably. Test results cannot be interpreted as absolute evidence for the presence or absence of malignant disease. Test Performed by: [address] [address] 9 Desirable: <150 Borderline High: 150-199 High: 200-499 Very High: >500 10 Desirable: <200 Borderline High: 200-239 High: >239 11 Low: <40 Desirable: 40-60 High: >60 12 Desirable: <100 Near Optimal: 100-129 Borderline High: 130-159 High: 160-189 Very High: >189 13 Therapeutic target for the treatment of diabetes mellitus patients is <7% HBA1C, and in selective patients <6.0%. Please refer to [employer] diabetic care guidelines for further information. 14 Because ethnic data is not always readily available, this report includes an eGFR for both -Americans and non- Americans. The National Kidney Disease Education Program (NKDEP) does not endorse the use of the MDRD equation for patients that are not between the ages of 18 and 70, are , have extremes of body size, muscle mass, or nutritional status, or are non- or non-. According to the National Kidney Foundation, irrespective of diagnosis, the stage of the disease is based on the level of kidney function: Stage Description GFR(mL/min/1.73 m(2)) 1 Kidney damage with normal or decreased GFR 90 2 Kidney damage with mild decrease in GFR 60-89 3 Moderate decrease in GFR 30-59 4 Severe decrease in GFR 15-29 5 Kidney failure <15 (or dialysis) 15 Therapeutic target for the treatment of diabetes Mellitus patients is <7% HBA1C, and in selective patients <6.0%.Please refer to [employer] Diabetic care guidelines for further information. 16 Desirable <150 Borderline high 150-199 High 200-499 Very High >500 17 Desirable <200 Borderline high 200-239 High >239 18 Low <40 Desirable: 40-60 High: >60 19 Desirable: <100 mg/dL Near Optimal: 100-129 mg/dL Borderline High: 130-159 mg/dL High: 160-189 mg/dL Very High: >189 mg/dL 20 Therapeutic target for the treatment of diabetes Mellitus patients is <7% HBA1C, and in selective patients <6.0%.Please refer to [employer] Diabetic care guidelines for further information. 21 Desirable <150 Borderline high 150-199 High 200-499 Very High >500 22 Desirable <200 Borderline high 200-239 High >239 23 Low <40 Desirable: 40-60 High: >60 24 Desirable: <100 mg/dL Near Optimal: 100-129 mg/dL Borderline High: 130-159 mg/dL High: 160-189 mg/dL Very High: >189 mg/dL 25 Therapeutic target for the treatment of diabetes Mellitus patients is <7% HBA1C, and in selective patients <6.0%.Please refer to [employer] Diabetic care guidelines for further information. 26 Because ethnic data is not always readily available, this report includes an eGFR for both -Americans and non- Americans. The National Kidney Disease Education Program (NKDEP) does not endorse the use of the MDRD equation for patients that are not between the ages of 18 and 70, are , have extremes of body size, muscle mass, or nutritional status, or are non- or non-. According to the National Kidney Foundation, irrespective of diagnosis, the stage of the disease is based on the level of kidney function: Stage Description GFR(mL/min/1.73 m(2)) 1 Kidney damage with normal or decreased GFR 90 2 Kidney damage with mild decrease in GFR 60-89 3 Moderate decrease in GFR 30-59 4 Severe decrease in GFR 15-29 5 Kidney failure <15 (or dialysis) 27 Assay by Chemiluminescence microparticle immunoassay on the [employer]. Values obtained with different methods or kits cannot be used interchangeably for patient monitoring. Results cannot be interpreted as absolute evidence of the presence or absence of malignancy. The test is not interpretable in . 28 Therapeutic target for the treatment of diabetes Mellitus patients is <7% HBA1C, and in selective patients <6.0%.Please refer to [employer] Diabetic care guidelines for further information. 29 Because ethnic data is not always readily available, this report includes an eGFR for both -Americans and non- Americans. The National Kidney Disease Education Program (NKDEP) does not endorse the use of the MDRD equation for patients that are not between the ages of 18 and 70, are , have extremes of body size, muscle mass, or nutritional status, or are non- or non-. According to the National Kidney Foundation, irrespective of diagnosis, the stage of the disease is based on the level of kidney function: Stage Description GFR(mL/min/1.73 m(2)) 1 Kidney damage with normal or decreased GFR 90 2 Kidney damage with mild decrease in GFR 60-89 3 Moderate decrease in GFR 30-59 4 Severe decrease in GFR 15-29 5 Kidney failure <15 (or dialysis) 30 Assay by Chemiluminescence microparticle immunoassay on the [employer]. Values obtained with different methods or kits cannot be used interchangeably for patient monitoring. Results cannot be interpreted as absolute evidence of the presence or absence of malignancy. The test is not interpretable in . 31 Desirable <150 Borderline high 150-199 High 200-499 Very High >500 32 Desirable <200 Borderline high 200-239 High >239 33 Low <40 Desirable: 40-60 High: >60 34 Desirable <100 Near Optimal 100-129 Borderline high 130-159 High 160-189 Very High >189 35 Therapeutic target for the treatment of diabetes Mellitus patients is <7% HBA1C, and in selective patients <6.0%.Please refer to [employer] Diabetic care guidelines for further information. 36 Therapeutic target for the treatment of diabetes Mellitus patients is <7% HBA1C, and in selective patients <6.0%.Please refer to [employer] Diabetic care guidelines for further information. 37 -- REFERENCE VALUE -- 25-HYDROXY D TOTAL (D2+D3) Optimum levels in the healthy population are 20-50, patients with bone disease may benefit from higher levels within this range. Test Performed by: [address] [address] [place]: Malcom Shultz III, M.D. 38 Therapeutic target for the treatment of diabetes Mellitus patients is <7% HBA1C, and in selective patients <6.0%.Please refer to [employer] Diabetic care guidelines for further information. 39 HDL Interpretation: Undesirable: High Risk: Less than 40 mg/dL Desirable: Low Risk: Greater than 60 mg/dL 40 LDL Interpretation: Low Risk Optimal Level: LDL Less than 100 mg/dL Near or Above Optimal: LDL 100-129 mg/dL Borderline High Risk: LDL 130-159 mg/dL High Risk: LDL 160-189 mg/dL Very High Risk: LDL Greater than 189 mg/dL 41 Because ethnic data is not always readily available, this report includes an eGFR for both -Americans and non- Americans. The National Kidney Disease Education Program (NKDEP) does not endorse the use of the MDRD equation for patients that are not between the ages of 18 and 70, are , have extremes of body size, muscle mass, or nutritional status, or are non- or non-. According to the National Kidney Foundation, irrespective of diagnosis, the stage of the disease is based on the level of kidney function: Stage Description GFR(mL/min/1.73 m(2)) 1 Kidney damage with normal or decreased GFR 90 2 Kidney damage with mild decrease in GFR 60-89 3 Moderate decrease in GFR 30-59 4 Severe decrease in GFR 15-29 5 Kidney failure <15 (or dialysis) 42 RUN DATE: 05/03/13 [facility] LAB LIVE PAGE 1 RUN TIME: 7541 [address] [place], [place] [address] Specimen Inquiry Name: YESSICA YUAN : [address]: Benjamin Roland MD Acct: [id number] Unit: [id number] AGE: 62 Location: ENDO Re04/23/13 SEX: F Status: REG REF SPEC: [id number] BASILIO: 04/23/13- SUBM DR: Benjamin Roland MD REQ: [id number] RECD: 04/23/13-0456 STATUS: ANNIKA PRADHAN DR: Huseyin Miranda MD _ ORDERED: S-100, ACTIN STAIN, LEVEL IV/3 Immunohistochemical stains for S100 and Smooth Muscle Actin were performed with appropriate controls on part 3 and support the above rendered diagnosis. Addendum Signed (signature on file) Sekou Chopra MD 1035 FINAL DIAGNOSIS 1. Colon, transverse, biopsy: Tubular adenoma. 2. Colon, polyp at 40 cm., biopsy: Tubular adenoma. 3. Colon, polyp at 35 cm., biopsy: Intramucosal neuroma (see comment). COMMENTS: Immunostains are pending and the results will be reported in addendum, or this will be revised if necessary. CLINICAL HISTORY Routine screening colonoscopy CONTINUED ON NEXT PAGE * ML=Testing performed at Main Lab DEPARTMENT OF PATHOLOGY, [facility] [place], [place] [address] Sekou Chopra M.D. Director [facility] Permit #[id number] RUN DATE: 05/03/13 [facility] LAB LIVE PAGE 2 RUN TIME: [address] [place] [id number] Specimen Inquiry Patient: RADHA JJYESSICA Peres [id number] (Continued) POST-OPERATIVE DIAGNOSIS (Continued) POST-OPERATIVE DIAGNOSIS Screening colonoscopy into cecum, prep good - 3 small polyps removed GROSS DESCRIPTION 1. The specimen is received in formalin labeled Yessica Hooddavid Анна, Biopsy Transverse Colon Polyp, and consists of a 0.4 x 0.1 x 0.1 cm. portion of sun-white tissue. The specimen entirely submitted in cassette 1. 2. The specimen is received in formalin labeled Yessica Hooddavid Анна, Biopsy Colon Polyp at 40 cm., and consists of two fragments of sun-white measuring in aggregate 0.6 x 0.3 x 0.2 cm. The specimen is submitted entirely in cassette 2. 3. The specimen is received in formalin labeled Yessica Hooddavid Анна, Biopsy Colon Polyp at 35 cm., and consists of a 0.4 x 0.1 x 0.1 cm. portion of sun-white tissue. The specimen is submitted entirely in cassette 3. Signed (signature on file) Sekou Chopra MD [id number] END OF REPORT * ML=Testing performed at Main Lab DEPARTMENT OF PATHOLOGY, [address] [place] [address] Sekou Chopra M.D. Director [facility] Permit #[id number] Because ethnic data is not always readily available, this report includes an eGFR for both -Americans and non- Americans. The National Kidney Disease Education Program (NKDEP) does not endorse the use of the MDRD equation for patients that are not between the ages of 18 and 70, are , have extremes of body size, muscle mass, or nutritional status, or are non- or non-. According to the National Kidney Foundation, irrespective of diagnosis, the stage of the disease is based on the level of kidney function: Stage Description GFR(mL/min/1.73 m(2)) 1 Kidney damage with normal or decreased GFR 90 2 Kidney damage with mild decrease in GFR 60-89 3 Moderate decrease in GFR 30-59 4 Severe decrease in GFR 15-29 5 Kidney failure <15 (or dialysis) 44 -- REFERENCE VALUE -- 25-HYDROXY D TOTAL (D2+D3) Optimum levels in the normal population are 25-80 Test Performed by: [facility] [address] [address] Plush Weaver: Malcom Shultz III, M.D. 45 Desirable: Less than 200 MG/DL Borderline-High Risk: 200-239 MG/DL High-Risk: 240 MG/DL and over 46 HDL Interpretation: Undesirable: High Risk: Less than 40 MG/DL Desirable: Low Risk: Greater than 60 MG/DL 47 LDL Interpretation: Low Risk Optimal Level: LDL Less than 100 MG/DL Near or Above Optimal: LDL 100-129 MG/DL Borderline High Risk: LDL 130-159 MG/DL High Risk: LDL 160-189 MG/DL Very High Risk: LDL Greater than 189 MG/DL 48 Therapeutic target for the treatment of diabetes Mellitus patients is <7% HBA1C, and in selective patients <6.0%.Please refer to [place] Diabetes Association Diabetic care guidelines for further information. 49 Assay by Chemiluminescence microparticle immunoassay on the Jose Alberto Advia Centaur. Values obtained with different methods or kits cannot be used interchangeably for patient monitoring. Results cannot be interpreted as absolute evidence of the presence or absence of malignancy. The test is not interpretable in . 50 Anion gap measurement may be of limited value in the presence of any alkalosis, especially in a combined acid base disorder. . 51 A metabolite of Naproxen, O-desmethylnaproxen, has been shown to interfere with the Jendrassik-Cesar method for measuring total bilirubin. Samples from patients who have taken Naproxen have shown spurious elevation in total bilirubin levels. 52 Because ethnic data is not always readily available, this report includes an eGFR for both -Americans and non- Americans. The National Kidney Disease Education Program (NKDEP) does not endorse the use of the MDRD equation for patients that are not between the ages of 18 and 70, are , have extremes of body size, muscle mass, or nutritional status, or are non- or non-. According to the National Kidney Foundation, irrespective of diagnosis, the stage of the disease is based on the level of kidney function: Stage Description GFR(mL/min/1.73 m(2)) 1 Kidney damage with normal or decreased GFR 90 2 Kidney damage with mild decrease in GFR 60-89 3 Moderate decrease in GFR 30-59 4 Severe decrease in GFR 15-29 5 Kidney failure <15 (or dialysis) 53 Assay by chemiluminescence microparticle immunoassay on the Jose Alberto Advia Centaur. Values obtained with different methods or kits cannot be used interchangeably for patient monitoring. Results cannot be interpreted as absolute evidence of the presence or absence of malignancy. The test is not interpretable in . 54 Anion gap measurement may be of limited value in the presence of any alkalosis, especially in a combined acid base disorder. . 55 Because ethnic data is not always readily available, this report includes an eGFR for both -Americans and non- Americans. The National Kidney Disease Education Program (NKDEP) does not endorse the use of the MDRD equation for patients that are not between the ages of 18 and 70, are , have extremes of body size, muscle mass, or nutritional status, or are non- or non-. According to the National Kidney Foundation, irrespective of diagnosis, the stage of the disease is based on the level of kidney function: Stage Description GFR(mL/min/1.73 m(2)) 1 Kidney damage with normal or decreased GFR 90 2 Kidney damage with mild decrease in GFR 60-89 3 Moderate decrease in GFR 30-59 4 Severe decrease in GFR 15-29 5 Kidney failure <15 (or dialysis) 56 THERAPEUTIC TARGET FOR THE TREATMENT OF DIABETES MELLITUS PATIENTS IS <7% HBA1C, AND IN SELECTIVE PATIENTS <6.0%. PLEASE REFER TO [employer] DIAB[employer] ASSOCIATION DIABETIC CARE GUIDELINES FOR FURTHER INFORMATION. 57 ASSAY BY CHEMILUMINESCENCE MICROPARTICLE IMMUNOASSAY ON THE Lab21 ADVPureBrandsAUR. VALUES OBTAINED WITH DIFFERENT METHODS OR KITS CANNOT BE USED INTERCHANGEABLY FOR PATIENT MONITORING. RESULTS CANNOT BE INTERPRETED ABSOLUTE EVIDENCE OF THE PRESENCE OR ABSENCE OF MALIGNANCY. THE TEST IS NOT INTERPRETABLE IN . 58 Anion gap measurement may be of limited value in the presence of any alkalosis, especially in a combined acid base disorder. . 59 A metabolite of Naproxen, O-desmethylnaproxen, has been shown to interfere with the Jendrassik-[place] method for measuring total bilirubin. Samples from patients who have taken Naproxen have shown spurious elevation in total bilirubin levels. 60 Because ethnic data is not always readily available, this report includes an eGFR for both -Americans and non- Americans. The National Kidney Disease Education Program (NKDEP) does not endorse the use of the MDRD equation for patients that are not between the ages of 18 and 70, are , have extremes of body size, muscle mass, or nutritional status, or are non- or non-. According to the National Kidney Foundation, irrespective of diagnosis, the stage of the disease is based on the level of kidney function: Stage Description GFR(mL/min/1.73 m(2)) 1 Kidney damage with normal or decreased GFR 90 2 Kidney damage with mild decrease in GFR 60-89 3 Moderate decrease in GFR 30-59 4 Severe decrease in GFR 15-29 5 Kidney failure <15 (or dialysis) 61 THERAPEUTIC TARGET FOR THE TREATMENT OF DIABETES MELLITUS PATIENTS IS <7% HBA1C, AND IN SELECTIVE PATIENTS <6.0%. PLEASE REFER TO [employer] DIAB[employer] ASSOCIATION DIABETIC CARE GUIDELINES FOR FURTHER INFORMATION. 62 CHOLESTEROL INTERPRETATION: Desirable: Less than 200 MG/DL Borderline-High Risk: 200-239 MG/DL High-Risk: 240 MG/DL and over 63 HDL INTERPRETATION: Undesirable: High Risk: Less than 40 MG/DL Desirable: Low Risk: Greater than 60 MG/DL 64 LDL INTERPRETATION: Low Risk Optimal Level: LDL Less than 100 MG/DL Near or Above Optimal: LDL 100-129 MG/DL Borderline High Risk: LDL 130-159 MG/DL High Risk: LDL 160-189 MG/DL Very High Risk: LDL Greater than 189 MG/DL 65 Anion gap measurement may be of limited value in the presence of any alkalosis, especially in a combined acid base disorder. . 66 A metabolite of Naproxen, O-desmethylnaproxen, has been shown to interfere with the Jendrassik-Cesar method for measuring total bilirubin. Samples from patients who have taken Naproxen have shown spurious elevation in total bilirubin levels. 67 Because ethnic data is not always readily available, this report includes an eGFR for both -Americans and non- Americans. The National Kidney Disease Education Program (NKDEP) does not endorse the use of the MDRD equation for patients that are not between the ages of 18 and 70, are , have extremes of body size, muscle mass, or nutritional status, or are non- or non-. According to the National Kidney Foundation, irrespective of diagnosis, the stage of the disease is based on the level of kidney function: Stage Description GFR(mL/min/1.73 m(2)) 1 Kidney damage with normal or decreased GFR 90 2 Kidney damage with mild decrease in GFR 60-89 3 Moderate decrease in GFR 30-59 4 Severe decrease in GFR 15-29 5 Kidney failure <15 (or dialysis) 68 ASSAY BY CHEMILUMINESCENCE MICROPARTICLE IMMUNOASSAY ON THE JOSE ALBERTO ADVIA ZipongoAUR. VAKUES OBTAINED WITH DIFFERENT METHODS OR KITS CANNOT BE USED INTERCHANGEABLY FOR PATIENT MONITORING. RESULTS CANNOT BE INTERPRETED ABSOLUTE EVIDENCE OF THE PRESENCE OR ABSENCE OF MALIGNANCY. THE TEST IS NOT INTERPRETABLE IN . 69 Anion gap measurement may be of limited value in the presence of any alkalosis, especially in a combined acid base disorder. . 70 A metabolite of Naproxen, O-desmethylnaproxen, has been shown to interfere with the Jendrassik-Cesra method for measuring total bilirubin. Samples from patients who have taken Naproxen have shown spurious elevation in total bilirubin levels. 71 Because ethnic data is not always readily available, this report includes an eGFR for both -Americans and non- Americans. The National Kidney Disease Education Program (NKDEP) does not endorse the use of the MDRD equation for patients that are not between the ages of 18 and 70, are , have extremes of body size, muscle mass, or nutritional status, or are non- or non-. According to the National Kidney Foundation, irrespective of diagnosis, the stage of the disease is based on the level of kidney function: Stage Description GFR(mL/min/1.73 m(2)) 1 Kidney damage with normal or decreased GFR 90 2 Kidney damage with mild decrease in GFR 60-89 3 Moderate decrease in GFR 30-59 4 Severe decrease in GFR 15-29 5 Kidney failure <15 (or dialysis) 72 NOTE: THIS ASSAY IS NOW BEING PERFORMED IN HOUSE. PLEASE NOTICE THE CHANGE IN THE REFERENCE RANGE. ASSAY BY CHEMILUMINESCENCE MICROPARTICLE IMMUNOASSAY ON THE Lab21 ACS:180SE. VALUES OBTAINED WITH DIFFERENT METHODS OR KITS CANNOT BE USED INTERCHANGEABLY FOR PATIENT MONITORING. RESULTS CANNOT BE INTERPRETED ABSOLUTE EVIDENCE OF THE PRESENCE OR ABSENCE OF MALIGNANCY. THE TEST IS NOT INTERPRETABLE IN . 73 Anion gap measurement may be of limited value in the presence of any alkalosis, especially in a combined acid base disorder. . 74 Note change in reference range as of 06/16/08. The change was based on recommendations from the [place] Diabetes Association. 75 Please note change in reference range effective 08 . 76 A metabolite of Naproxen, O-desmethylnaproxen, has been shown to interfere with the Jendrassik-Days Creek method for measuring total bilirubin. Samples from patients who have taken Naproxen have shown spurious elevation in total bilirubin levels. 77 Because ethnic data is not always readily available, this report includes an eGFR for both -Americans and non- Americans. The National Kidney Disease Education Program (NKDEP) does not endorse the use of the MDRD equation for patients that are not between the ages of 18 and 70, are , have extremes of body size, muscle mass, or nutritional status, or are non- or non-. According to the National Kidney Foundation, irrespective of diagnosis, the stage of the disease is based on the level of kidney function: Stage Description GFR(mL/min/1.73 m(2)) 1 Kidney damage with normal or decreased GFR 90 2 Kidney damage with mild decrease in GFR 60-89 3 Moderate decrease in GFR 30-59 4 Severe decrease in GFR 15-29 5 Kidney failure <15 (or dialysis) 78 AA 05/09 79 ---- RUN DATE: 04/17/10 [facility] NMI LIVE PAGE 1 RUN TIME: 843 Specimen Inquiry RUN USER: INTERFACE -- Name: YESSICA YUAN Status: REG REF Re04/12/10 Age/Sex: 59/F Unit#: [id number] Location: [facility] : 51 -- Specimen: [id number] SOUT Spec Date: 04/12/[address]: Avtar Gutiérrez Spec Type: CYTOLOGY Received: 04/12/10-3120 Copies to: Ale jimenes MD SOURCE ECTOCERVICAL/ENDOCERVICAL Thin Prep with Reflex HPV Test PATIENT INFORMATION ACTUAL COLLECTION DATE: 04/12/10 ? No POST MENOPAUSAL? Yes HYSTERECTOMY? No PREVIOUS ABNORMAL PAP SMEARS No PATIENT HISTORY: Last menstrual period 2005 ADEQUACY OF SPECIMEN Satisfactory for evaluation * Transformation zone component identified * DIAGNOSIS NEGATIVE FOR INTRAEPITHELIAL LESION OR MALIGNANCY * NOTE Specimen sent to [place] [facility] in [place], [place] on 04/13/10 by O at 1043. Results will be reported separately in an addendum. ADDENDUM Addendum #1 Entered: 04/17/1064 [place] Human Papilloma Virus test results received with preparation and diagnosis completed by [facility], [place], [place]. Results: NEGATIVE High Risk (for types 16, 18, 31, 33, 35, 39, 45, 51, 52, 56, 58, 59, 68) This test was developed and its performance characteristics determined by -- DEPARTMENT OF PATHOLOGY, [address] [place] [address] [facility] Permit #[id number] Sekou Chopra M.D. Director Heaven Ness M.D. Logging Engineer Dir monica -- -- RUN DATE: 04/17/10 [facility] NMI LIVE PAGE 2 RUN TIME: 843 Specimen Inquiry RUN USER: INTERFACE -- Name: VICKIEDEVONTEBeny JJYESSICA Ja Status: REG REF Re04/12/10 Age/Sex: 59/F Unit#: [id number] Location: [facility] : 51 -- -- CONTINUED -- ADDENDUM (Continued) Laboratory Medicine and Pathology, [place], [place]. It has not been cleared or approved by the U.S. Food and Drug Administration. Test Performed by: [facility] Dpt of lab Med and Pathology [address] [place] [id number] Plush Weaver: Malcom Shultz III, M.D. Original hard copy report from [employer] is available upon request by calling Pathology at [phone]. Addendum Review Jose HERNANDEZ([facility]) 04/17/10 -- This Pap test was evaluated with the assistance of the [employer] Pap Test Imaging System. The Pap Smear is a screening test designed to aid in the detection of premalign ant and malignant conditions of the uterine cervix. It is not a diagnostic procedure a nd should not be used as the sole means of detecting cervical cancer. Both false- positiv e and false-negative reports do occur. Depending on your risk status, a Pap smear dinorah uld be obtained and evaluated every one to three years. Initial evaluation performed by Gabby BELLO([facility]) 04/13/10 Final Interpretation electronically signed by: Gabby BELLO CT([facility]) 04/13/10 1128 -- -- DEPARTMENT OF PATHOLOGY, [address] [place] [id number] [facility] Permit #[id number] Sekou Chopra M.D. Director Heaven Ness M.D. Logging Engineer Dir rosarioor -- Procedures Date Code Description Status 09/14/2018 [id number] Colonoscopy Completed 06/18/2018 [id number] Mammogram Completed 03/06/2018 22261 EKG Tracing & Interpretation Completed 12/29/2017 [id number] Bone Mineral Density Test Completed 06/17/2017 [id number] Mammogram Completed 12/24/2016 [id number] Bone Mineral Density Test Completed 06/07/2016 [id number] Mammogram Completed 12/19/2015 [id number] Bone Mineral Density Test Completed 05/31/2015 [id number] Mammogram Completed 10/24/2014 [id number] Bone Mineral Density Test Completed 05/30/2014 [id number] Mammogram Completed 01/26/2014 70903 closed treatment carpal bone fx Completed 10/14/2013 877354489 Bone Mineral Density Test Completed 05/24/2013 93985 EKG Tracing & Interpretation Completed 05/20/2013 [id number] Mammogram Completed 04/23/2013 [id number] Colonoscopy Completed 10/08/2012 [id number] Bone Mineral Density Test Completed 05/13/2012 [id number] Mammogram Completed 05/04/2012 70498 Rad Exam; Ankle Comp Completed 04/13/2012 25885 Rad Exam; Ankle Comp Completed 03/27/2012 69623 Rad Exam; Ankle Comp Completed 03/17/2012 11831 ORIF Open TX Distal Fibular FX Incl Internal Fixation Completed When Perfom 03/17/2012 35179 ORIF Open TX Distal Fibular FX Incl Internal Fixation Completed When Perfom 10/07/2011 [id number] Bone Mineral Density Test Completed 04/24/2011 [id number] Mammogram Completed 10/17/2010 886995593 Bone Mineral Density Test Completed 04/19/2010 [id number] Mammogram Completed 04/09/2010 [id number] Mammogram Completed 06/26/2009 58892 Pulmonary Function><Bronchodilator Completed 06/19/2009 19516 EKG Tracing & Interpretation Completed 04/19/2008 58578 Pulmonary Function><Bronchodilator Completed 04/12/2008 83753 EKG Tracing & Interpretation Completed Encounters Type Date Location Provider Dx Diagnosis Office Visit 09/07/2018 [facility] Internal Zain Cheatham Essential ( primary) 2:20p Medicine Misti Ortega hypertension [place] R73.01 Impaired fasting glucose J45.909 Unspecified asthma, uncomplicated Office Visit 12/10/2017 9:20a [facility] Internal Medicine Jama Spring NP R05 Cough J01.90 Acute sinusitis, unspecified Office Visit 08/28/2017 [facility] Internal Ale J45.901 Unspecified 2:20p Moshe Miranda M.D. asthma with (acute) exacerbation Office Visit 06/13/2017 [facility] Internal Ale I10 Essential 3:40p Moshe Miranda M.D. (primary) hypertension Office Visit 03/21/2017 [facility] Dermatology Osvaldo Kczer, D22.39 Melanocytic nevi 8:50a MD of other parts of face L82.1 Other seborrheic keratosis L30.9 Dermatitis, unspecified D22.72 Melanocytic nevi of left lower limb, including hip D22.71 Melanocytic nevi of right lower limb, including hip Office Visit 12/19/2016 8:40a [facility] Internal Ale I10 Essential Moshe Miranda M.D. (primary) hypertension Office Visit 10/30/2016 9:00a [facility] Internal Kaylah Mcfarlane J45.901 Unspecified asthma Medicine N.P. with (acute) exacerbation Office Visit 06/05/2016 11:00a [facility] Internal Ale Z00.00 Encntr for general Moshe Miranda M.D. adult medical exam w/o abnormal findings R73.01 Impaired fasting glucose E03.9 Hypothyroidism, unspecified S91.212A Laceration w/o fb of left great toe w damage to nail, init Z23 Encounter for immunization Office Visit 04/18/2015 3:40p [facility] Internal Ale V70.0 Examination Moshe Miranda M.D. 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 466.0 Bronchitis Acute Office Visit 04/14/2014 1:20p [facility] Internal Ale 401.1 Hypertension Moshe Miranda M.D. Benign 790.21 Impaired Fasting Glucose Office Visit 02/17/2014 10:45a [facility] Raven 814.03 [facility] Waller Triquetral C.M.A. (Cuneiform) Bone Of Wrist Closed Office Visit 10/14/2013 1:40p [facility] Internal Ale V70.0 Examination Medicine Jordan Miranda General Medical Routine AT Health Care Facility 401.1 Hypertension Benign 244.9 Hypothyroidism Other Unspec 790.21 Impaired Fasting Glucose V73.99 Screening Examination Viral Disease Unspec Office Visit 05/24/2013 10:20a [facility] Internal Ale V72.84 Examination Moshe Miranda M.D. Preoperative Unspec 366.8 Cataract Other 401.1 Hypertension Benign Office Visit 04/12/2013 3:00p [facility] Internal Ale 401.1 Hypertension Moshe Miranda M.D. Benign 244.9 Hypothyroidism Other Unspec 790.21 Impaired Fasting Glucose 733.90 Bone & Cartilage Disorder Unspec Office Visit 11/23/2012 10:40a [facility] Internal Kaylah Mcfarlane, 466.0 Bronchitis Acute Medicine N.P. Office Visit 10/12/2012 3:20p [facility] Internal Ale V70.0 Examination Moshe Miranda M.D. General Medical Routine AT Health Care Facility 733.90 Bone & Cartilage Disorder Unspec 401.1 Hypertension Benign Office Visit 04/07/2012 4:00p [facility] Internal Ale 401.1 Hypertension Moshe Miranda M.D. Benign 790.21 Impaired Fasting Glucose Office Visit 03/16/2012 2:15p Orthopedic Van Cruz, 824.4 [facility] Bimalleolar Closed C.M.A. 824.2 FX Ankle Lateral Malleolus Closed Office Visit 02/03/2012 10:20a [facility] Kaylah Varn, 466.0 Bronchitis Acute Medicine N.P. Office Visit 12/03/2011 3:20p [facility] Kaylah Varn, 466.0 Bronchitis Acute Medicine N.P. Office Visit 10/10/2011 2:00p DO Not Use Ale V70.0 Examination Mercedes Miranda M.D. 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 Unspec Office Visit 06/25/2011 DO Not Use Kaylah Varn, 466.0 Bronchitis Acute 2:00p [facility] N.P. Office Visit 05/07/2011 DO Not Use Kaylah Varn, 466.0 Bronchitis Acute 11:00a [facility] N.P. Office Visit 03/08/2011 DO Not Use Kaylah Varn, 466.0 Bronchitis Acute 3:40p [facility] N.P. Office Visit 02/05/2011 DO Not Use Ale 401.1 Hypertension 11:00a Mercedes Miranda M.D. 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 General Medical Routine AT Health Care Facility 373.00 Blepharitis Unspec 401.1 Hypertension Benign 244.9 Hypothyroidism Other Unspec 493.90 Asthma Unspec W/O Status Asthmaticus Office Visit 12/29/2009 DO Not Use [place], 272.4 Hyperlipidemia 10:45a Mercedes Rodriguez M.D. 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 General Medical Routine AT Health Care Facility 401.1 Hypertension Benign 244.9 Hypothyroidism Other Unspec Office Visit 02/24/2009 DO Not Use Kaylah Varn, 461.9 Sinusitis Acute 11:45a [facility] N.P. Unspec Office Visit 01/11/2009 DO Not Use [place], 493.90 Asthma Unspec W/O 3:45p Mercedes Rodriguez M.D. Status Asthmaticus 466.0 Bronchitis Acute Office Visit 10/31/2008 DO Not Use [place], 493.90 Asthma Unspec 11:30a Mercedes Rodriguez M.D. 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 Office Visit 04/12/2008 DO Not Use [place], 493.90 Asthma Unspec W/O 2:15p Mercedes Rodriguez M.D. Status Asthmaticus 272.0 Hypercholesterolemia Pure 401.1 Hypertension Benign V70.0 Examination General Medical Routine AT [facility] Facility Office Visit 12/18/2007 DO Not Use Kaylah Varn, 466.0 Bronchitis Acute 3:15p [facility] N.P. Office Visit 11/23/2007 DO Not Use Kaylah Varn, 493.90 Asthma Unspec W/O 10:00a [facility] N.P. Status Asthmaticus 466.0 Bronchitis Acute Office Visit 10/29/2007 DO Not Use Kaylah Varn, 388.70 Otalgia & Earache 10:00a [facility] N.P. Unspec Office Visit 10/26/2007 DO Not Use Kaylah Varn, 493.90 Asthma Unspec W/O 10:15a [facility] N.P. Status Asthmaticus 466.0 Bronchitis Acute Office Visit 10/15/2007 DO Not Use Radomstiburcio, 493.90 Asthma Unspec 2:15p Mercedes Rodriguez M.D. W/O Status Asthmaticus 401.1 Hypertension Benign Office Visit 09/23/2007 DO Not Use Kaylah Varn, 466.0 Bronchitis Acute 1:45p [facility] N.P. Office Visit 04/08/2007 DO Not Use [place], V70.0 Examination 8:45a Mercedes Rodriguez M.D. General Medical Routine AT Health Care Facility Office Visit 10/14/2006 DO Not Use Radalh[place], 401.1 Hypertension 2:45p [facility] Rodriguez M.D. Benign 493.90 Asthma Unspec W/O Status Asthmaticus 272.4 Hyperlipidemia Other Unspec Plan of Treatment 03/12/2019 - Ale Miranda M.D.Z00.00 Encounter for general adult medical examination without abnoComments:VACCINES:Flu shot every year in the fall.Tetanus: last one done in 2015Pneumonia vaccines: there are two pneumonia vaccines recommended - Pneumovax: you had this in 1992 and need the post-65 boosterPrevnar: done 02/2018Pneumovax due 1 year after Prevnar - do todayShingles vaccine: there are 2 shinglesvaccinesZostavax: 50% effectiveShingrix: 90% effective. This is a new shingles vaccine, available at pharmacies. Series of 2 shots, given 2-6 months apart. Most people get a flu- like reaction. Cost isabout $400 - call your insurance about coverage. Not widely available - talk to your pharmacist about their waiting list CANCER SCREENING:Colonoscopy: last one done in 2017, follow up due at 5 yearsMammogram : last done 06/18/18Pap smear: guidelines recommend stopping pap smears after age 65Skin screening: Dr. Pilar John SCREENING:Bone density: checked in December with Dr. Jurado screening: done in JanuaryDiabe screening: A1C was 6.0 in JanuaryADVANCE DIRECTIVE:It would be good for us to have a copy of your health care proxy and advanced directive on file here.Immunizations/ Injections:Pneumonia [id number] Essential (primary) hypertensionComments:Your blood pressure is OK. Continue the same medication Portion controlKeep walking - look for smallincrease in intensity or frequency or timeJ45.998 Other asthmaNew Medication:Azithromycin 250 mg - 2 tabs by mouth on day 1; 1 tab by mouth every day on days 2-5D22.9 Melanocytic nevi, unspecifiedReferral:Pilar Pizano MD, [id number] Personal history of malignant neoplasm of breastNew Xrays:[facility] Diagnostic Mammo Left, Ordered: 03/12/19
--- NOTE | 2019-04-09 14:58 | ED ---
Lower Extremity - HPI Summary HPI Summary: Patient is a 68-year-old female who presents emergency department for injury to left ankle. Injury occurred just prior to arrival. Patient states she was loading things into her car for a camping trip when she twisted ankle on the sidewalk. No other injuries sustained. Ambulation makes symptoms worse. Rest makes symptoms better. - History of Current Complaint Chief Complaint: EDExtremityLower Stated Complaint: LEFT ANKLE/FOOT INJ/LAC ON FOOT PER PT Time Seen by Provider: 04/09/19 13:09 Hx Obtained From: Patient Pain Intensity: 8 - Allergies/Home Medications Allergies/Adverse Reactions: Allergies Allergy/AdvReac Type Severity Reaction Status Date / Time doxycycline Allergy Nausea And Verified 04/09/19 12:46 Vomiting zafirlukast [From Accolate] Allergy Hives Verified 04/09/19 12:46 levofloxacin AdvReac Hallucinati Verified 04/09/19 12:46 ons PMH/Surg Hx/FS Hx/Imm Hx Previously Healthy: Yes Endocrine/Hematology History: Reports: Hx Thyroid Disease - HYPOTHYROID- PARTIAL THYROIDECTOMY Cardiovascular History: Reports: Hx Hypertension - PATIENT REPORTS ON MEDICATION FOR Respiratory History: Reports: Hx Asthma - ROUTINE AND PRN INHALERS FOR History: Reports: Other Problems/Disorders - MEGILARY SPONGE KIDNEY- CHRONIC MICROSCOPIC HEMATURIA- HUSSEINI FOLLOWS RADHA Musculoskeletal History: Reports: Hx Osteoporosis Denies: Hx Rheumatoid Arthritis Sensory History: Reports: Hx Cataracts - BILATERAL, Hx Contacts or Glasses - GLASSES, Hx Glaucoma - ON DROPS FOR Denies: Hx Hearing Aid Opthamlomology History: Reports: Hx Cataracts - BILATERAL, Hx Contacts or Glasses - GLASSES, Hx Glaucoma - ON DROPS FOR - Cancer History Hx Chemotherapy: Yes - BREAST Hx Radiation Therapy: No - Surgical History Surgery Procedure, Year, and Place: 1959-TONSILLECTOMY. LEFT BREAST ADENOMA REMOVED- [facility] [place]. PARTIAL THYROIDECTOMY. 2009- RIGHT MASTECTOMY-[facility] [place] WITH LYMPH NODES BIOPSY. 2011-REPAIR TIBULA FRACTURE-[facility] [place] Hx Anesthesia Reactions: No Infectious Disease History: No Infectious Disease History: Reports: Hx Hepatitis - 1981-HEP A Denies: Traveled Outside the [place] in Last 30 Days - Family History Known Family History: Positive: Non-Contributory - Social History Occupation: Retired Lives: With Family Alcohol Use: None Substance Use Type: Reports: None Smoking Status (MU): Never Smoked Tobacco Review of Systems Positive: Other - left ankle pain Neurological: Negative Negative: Weakness, Paresthesia, Numbness All Other Systems Reviewed And Are Negative: Yes Physical Exam Triage Information Reviewed: Yes Vital Signs On Initial Exam: Initial Vitals Temp Pulse Resp BP Pulse Ox 98.1 F 77 16 173/86 99 04/09/19 12:50 04/09/19 12:50 04/09/19 12:50 04/09/19 12:50 04/09/19 12:50 Vital Signs Reviewed: Yes Appearance: Positive: Well-Appearing - Pt. sitting in wheelchair in NAD. present. Skin: Positive: Warm, Dry Head/Face: Positive: Normal Head/Face Inspection Eyes: Positive: Normal, EOMI, CATIE Neck: Positive: Supple Musculoskeletal: Positive: Other - pain and edema over lateral malleolus. Good pedal pulse. Achilles tendon intact. No proximal tib/fib or knee pain. Small superficial abrasion to dorsum of foot. Neurological: Positive: Normal, CN Intact II-III Psychiatric: Positive: Affect/Mood Appropriate Procedures - Splinting Left Lower Extremity Hand-Made Type: orthoglass Splint: sugar-tong Pre-Proc Neuro Vasc Exam: normal Post-Proc Neuro Vasc Exam: normal Diagnostics - Vital Signs Vital Signs Temp Pulse Resp BP Pulse Ox 04/09/19 12:50 98.1 F 77 16 173/86 99 - Laboratory Lab Statement: Any lab studies that have been ordered have been reviewed, and results considered in the medical decision making process. Lower Extremity Course/Dx - Course Course Of Treatment: Pt. presenting for isolated ankle injury. Declines pain medication. Superficial abrasion to foot. Pt. states tetanus within 3 yrs. Xray shows distal spiral fibular fx. Ankle was splinted. Pt. will need to be nonweight bearing. Pt. notes she is unable to use crutches. Pt. does have a walker at home. Pt. feels most comfortable using a wheelchair. Rx for wheelchair given since pt. is nonweight bearing. Pt. wishes to take motrin for pain. To call ortho. clinic for close f.u apt. Ice and elevate. Will return if sxs change or worsen. Pt. understands and agrees with paln. - Diagnoses Differential Diagnosis/HQI/PQRI: Positive: Contusion, Dislocation, Fracture ( Closed), Sprain, Strain Provider Diagnoses: Closed fibular fracture Discharge - Sign-Out/Discharge Documenting (check all that apply): Patient Departure Patient Received Moderate/Deep Sedation with Procedure: No - Discharge Plan Condition: Good Disposition: HOME Patient Education Materials: Ankle Fracture (ED) Referrals: Ale Miranda MD [Primary Care Provider] - Additional Instructions: Schedule a follow up appointment with orthopedics Ibuprofen or tylenol for pain as directed Ice and elevate Keep splint in place Return to ER if symptoms change or worsen - Billing Disposition and Condition Condition: GOOD Disposition: Home
[2019-04-09 15:27] VITALS: BP 165/90
== END 2019-04-09 15:18 | disposition home or self-care (01) ==
LOC: ED 12:41
DX: S82.832A Other fracture of upper and lower end of left fibula, initial encounter for closed fracture (principal); X50.0XXA Overexertion from strenuous movement or load, initial encounter; E03.9 Hypothyroidism, unspecified; I10 Essential (primary) hypertension
CPT/HCPCS: 99282